=== PATIENT | female | born 1945 | race Caucasian/White ===

== ENCOUNTER 2016-05-29 15:29 | Emergency (ER) | payer MEDICARE, BC ==
[2016-05-29] MEDS ORDERED: MECLIZINE HYDROCHLORIDE 12.5 MG TAB PO ONE (15:46)
[2016-05-29] MEDS ORDERED: LORAZEPAM 2 MG/ML SOL IV ONE ×2 (15:46→15:52)
[2016-05-29] MEDS ORDERED: PROMETHAZINE HYDROCHLORIDE 25 MG/ML SOL IV ONE (15:47)
[2016-05-29] MEDS ORDERED: PROMETHAZINE HYDROCHLORIDE 25 MG/ML SOL ONE (15:50)
[2016-05-29] MEDS ORDERED: MECLIZINE HYDROCHLORIDE 12.5 MG TAB ONE (15:51)
[2016-05-29] MEDS ORDERED: LORAZEPAM 2 MG/ML SOL ONE (15:51)
[2016-05-29] MEDS ORDERED: SCOPOLAMINE 1.5MG PATCH TD SCH (16:00)
[2016-05-29] MEDS ORDERED: SCOPOLAMINE 1.5MG PATCH TD ONE (16:02)
[2016-05-29 16:32] LABS: BASOPHILS % (AUTO) 0 % (0-3); EOSINOPHILS % (AUTO) 0 % (0-9); HEMATOCRIT 39 % (35-47); MEAN CORPUSCULAR HGB CONC 35.2 gm/dl (32.0-36.0); MEAN CORPUSCULAR VOLUME 89 fL (81-99); MONOCYTES % (AUTO) 4.3 % (0-12); NEUTROPHILS % (AUTO) 88.2 % (37-80)
[2016-05-29 16:35] VITALS: TEMP 98.4
[2016-05-29 16:41] LABS: CALCIUM 8.9 mg/dl (8.5-10.1); POTASSIUM 3.6 mMol/L (3.5-5.1)
[2016-05-29 17:05] VITALS: RESP 18
[2016-05-29 18:21] VITALS: BP 124/65; PULSE 65; O2SAT 98
== END 2016-05-29 18:42 | disposition home or self-care (01) | DRG 149 ==
LOC: ED 15:29
DX: R42 Dizziness and giddiness (principal); H93.19 Tinnitus, unspecified ear
CPT/HCPCS: 36415; 80048; 85025; 93005; 96374; 96375; 99284; 99285; J2060; J2550

== ENCOUNTER 2017-11-15 08:23 | Inpatient (IN) | payer MEDICARE, BC ==
[2017-11-15] MEDS ORDERED: ONDANSETRON 4 MG ODT BU ONE (08:37)
[2017-11-15] MEDS ORDERED: ONDANSETRON 4 MG ODT ONE (08:37)
[2017-11-15] MEDS ORDERED: SODIUM CHLORIDE 0.9% 1000ML 1,000 ML IV ONE (08:56)
[2017-11-15] MEDS ORDERED: LORAZEPAM 2 MG/ML 1 MG in SODIUM CHLORIDE 20 ML 9 ML IV ONE (08:57)
[2017-11-15] MEDS ORDERED: DIPHENHYDRAMINE 50 MG/ML SOL IV ONE (08:58)
[2017-11-15] MEDS ORDERED: DIPHENHYDRAMINE 50 MG/ML SOL ONE (09:06)
[2017-11-15] MEDS ORDERED: LORAZEPAM 2 MG/ML SOL ONE (09:06)
[2017-11-15] MEDS ORDERED: ONDANSETRON HCL 4 MG TAB PO PRN (19:56)
[2017-11-15] MEDS ORDERED: Non-Formulary Medication MISC (Albuterol Sulfate [Albuterol *(Proair)(Ventolin)(Proventi IH PRN (19:56)
[2017-11-15] MEDS ORDERED: MECLIZINE HYDROCHLORIDE 12.5 MG TAB PO PRN (19:56)
[2017-11-15] MEDS ORDERED: ONDANSETRON HCL 4 MG/2 ML SOL IV PRN (20:03)
[2017-11-15] MEDS ORDERED: ALUMINUM/MAGNESIUM 30 ML SUS PO PRN (20:04)
[2017-11-15 20:21] LABS: BASOPHILS % (AUTO) 0 % (0-3); EOSINOPHILS % (AUTO) 0 % (0-9); HEMATOCRIT 38 % (35-47); HEMOGLOBIN 12.9 gm/dl (12.0-15.5); LYMPHOCYTES % (AUTO) 12.5 % (10-50); MEAN CORPUSCULAR HEMOGLOBIN 31.5 pg (27.0-32.0); MEAN CORPUSCULAR HGB CONC 33.9 gm/dl (32.0-36.0); MEAN CORPUSCULAR VOLUME 93 fL (81-99); MONOCYTES % (AUTO) 5.2 % (0-12); NEUTROPHILS % (AUTO) 81.8 % (37-80)
[2017-11-15 20:28] LABS: CALCIUM 8.4 mg/dl (8.5-10.1); CREATININE 0.68 mg/dl (0.60-1.00); POTASSIUM 3.8 mMol/L (3.5-5.1)
[2017-11-15 20:40] LABS: CARBON DIOXIDE 27.6 mEq/L (21-32)
[2017-11-15] MEDS: FLUTICASONE INH SCH (20:49)
[2017-11-15] MEDS: SALME INH SCH (20:49)
[2017-11-15] MEDS: SODIUM CHLORIDE 0.9% 1000ML 1,000 ML IV SCH (20:55)
[2017-11-15] MEDS: ASPIRIN 81 MG CHEWABLE CTB PO SCH (21:05)
[2017-11-15] MEDS: OXYBUTYNIN CHLORIDE 5 MG TAB PO SCH (21:05)
[2017-11-15] MEDS: ZOLPIDEM TARTRATE 5 MG TAB PO PRN (21:05)
[2017-11-15] MEDS: LOVASTATIN 20 MG TABLET PO SCH (21:05)
[2017-11-15] MEDS: RANITIDINE HCL 150 MG TAB PO SCH (22:15)
[2017-11-16] MEDS: SODIUM CHLORIDE 0.9% 1000ML 1,000 ML IV SCH ×2 (07:04→17:38)
[2017-11-16 08:01] LABS: BASOPHILS % (AUTO) 1 % (0-3); EOSINOPHILS % (AUTO) 0 % (0-9); HEMATOCRIT 36 % (35-47); HEMOGLOBIN 12.3 gm/dl (12.0-15.5); MEAN CORPUSCULAR HEMOGLOBIN 31.4 pg (27.0-32.0); MEAN CORPUSCULAR HGB CONC 33.9 gm/dl (32.0-36.0); MEAN CORPUSCULAR VOLUME 92 fL (81-99); NEUTROPHILS % (AUTO) 66.7 % (37-80)
[2017-11-16 08:07] LABS: CREATININE 0.77 mg/dl (0.60-1.00); POTASSIUM 3.5 mMol/L (3.5-5.1)
[2017-11-16] MEDS: FLUTICASONE PROPIONATE NAS SCH ×2 (08:42→08:47)
[2017-11-16] MEDS: FLUTICASONE INH SCH ×3 (08:43→21:09)
[2017-11-16] MEDS: SALME INH SCH ×3 (08:43→21:09)
[2017-11-16] MEDS: OXYBUTYNIN CHLORIDE 5 MG TAB PO SCH ×2 (08:46→21:08)
[2017-11-16] MEDS ORDERED: ALBUTEROL SULFATE 120 PUFF/17 GM ARO INH PRN (09:45)
[2017-11-16] MEDS: FAMOTIDINE 20 MG TAB PO SCH ×2 (11:55→21:08)
[2017-11-16] MEDS: RANITIDINE HCL 150 MG TAB PO SCH (13:14)
[2017-11-16] MEDS: LOVASTATIN 20 MG TABLET PO SCH (21:08)
[2017-11-16] MEDS: ASPIRIN 81 MG CHEWABLE CTB PO SCH (21:08)
[2017-11-16] MEDS: ZOLPIDEM TARTRATE 5 MG TAB PO PRN (21:15)
[2017-11-17 02:21] VITALS: RESP 16; TEMP 97.8
[2017-11-17] MEDS ORDERED: ACETAMINOPHEN 325 MG PO PRN (08:18)
[2017-11-17] MEDS ORDERED: SERTRALINE HYDROCHLORIDE 50 MG TAB PO SCH (08:30)
[2017-11-17] MEDS: FLUTICASONE INH SCH (09:00)
[2017-11-17] MEDS: SALME INH SCH (09:00)
[2017-11-17] MEDS ORDERED: FLUTICASONE PROPIONATE SPR NAS SCH (09:00)
[2017-11-17] MEDS: FAMOTIDINE 20 MG TAB PO SCH (09:00)
[2017-11-17] MEDS ORDERED: MONTELUKAST SODIUM 10 MG TAB PO SCH (09:00)
[2017-11-17] MEDS: OXYBUTYNIN CHLORIDE 5 MG TAB PO SCH (09:00)
[2017-11-17 09:25] LABS: BASOPHILS % (AUTO) 1 % (0-3); EOSINOPHILS % (AUTO) 1 % (0-9); HEMATOCRIT 43 % (35-47); HEMOGLOBIN 13.8 gm/dl (12.0-15.5); MEAN CORPUSCULAR HEMOGLOBIN 30.8 pg (27.0-32.0); MEAN CORPUSCULAR HGB CONC 32.4 gm/dl (32.0-36.0); MEAN CORPUSCULAR VOLUME 95 fL (81-99); MONOCYTES % (AUTO) 7.1 % (0-12); NEUTROPHILS % (AUTO) 64.9 % (37-80)
[2017-11-17 09:36] LABS: CALCIUM 8.8 mg/dl (8.5-10.1); CARBON DIOXIDE 28.2 mEq/L (21-32); CREATININE 0.94 mg/dl (0.60-1.00); POTASSIUM 3.6 mMol/L (3.5-5.1)
[2017-11-17 10:23] VITALS: BP 151/82; PULSE 58; O2SAT 91
== END 2017-11-17 13:50 | disposition home or self-care (01) | DRG 149 ==
LOC: ED 08:23 → ACUTE CARE 18:12
PROVIDERS: ADMIT Family Medicine; ATTEND Family Medicine
PROC: F01K5ZZ Range of Motion and Joint Integrity Assessment of Musculoskeletal System - Upper Back / Upper Extremity (ICD-10-PCS; principal; 2017-11-16)
DX: R42 Dizziness and giddiness (principal); C34.92 Malignant neoplasm of unspecified part of left bronchus or lung; C34.91 Malignant neoplasm of unspecified part of right bronchus or lung; E87.1 Hypo-osmolality and hyponatremia; I10 Essential (primary) hypertension
CPT/HCPCS: 36415; 70450; 80048; 85025; 96365; 96374; 96375; 99283; 99285; J1200; J2060; J2405; A9270-GY